=== PATIENT | male | born 1965 | race American Indian/Alaskan Native ===

== ENCOUNTER 2017-12-10 15:09 | Emergency (ER) | payer MEDICAID, OTHER, SELFPAY ==
--- NOTE | 2017-12-10 15:11 | DI.RAD.S_ITS ---
PROCEDURE: XR CHEST 1V INDICATIONS: ams TECHNIQUE: One view of the chest was acquired. COMPARISON: [facility], CR, CHEST 2VW, 12/24/2008, 0:35. [facility], CR, CHEST 1 VIEW, 10/04/2015, 19:04. FINDINGS: Surgical changes and devices: None. Lungs and pleura: No pleural effusions or pneumothorax. Lungs are clear. Mediastinum: Mediastinal contours appear normal. Heart size is normal. Bones and chest wall: No suspicious bony lesions. Overlying soft tissues appear unremarkable. IMPRESSION: No acute cardiopulmonary disease. Dictated by: Daisy Trujillo M.D. on 12/10/2017 at 15:49 Approved by: Daisy Trujillo M.D. on 12/10/2017 at 15:50
[2017-12-10 15:15] VITALS: BP 156/107; PULSE 126; RESP 16; TEMP 36.9; O2SAT 97; BMI 28.8
[2017-12-10 15:42] LABS: Add Manual Diff / Slide Review NO; Eosinophils Percent Auto 1.7 % (2-4); Hematocrit 47.7 % (41-53); Hemoglobin 15.7 g/dL (13.5-17.5); Lymphocytes Percent Auto 40.4 % (25-40); Mean Corpuscular HGB Conc 32.8 % (30-36); Mean Corpuscular Hemoglobin 31.5 PG (26-34); Mean Corpuscular Volume 95.8 fL (80-100); Monocytes Percent Auto 7.6 % (3-14); Neutrophils Absolute Auto 6700 /uL (3000-5900); Neutrophils Percent Auto 49.3 % (50-75); Platelet Count 441 X10^3/uL (150-400); Red Blood Cell Count 4.98 X10^6/uL (4.5-5.9); Red Cell Distribution Width 15.2 % (11.6-14.8); White Blood Cell Count 13.6 X10^3/uL (4.5-11.0)
[2017-12-10 15:43] LABS: Carbon Dioxide 11 mmol/L (22-32); Estimated Glomerular Filt Rate > 60.0 mL/min (>60); HEMOLYSIS 16 (0-50)
[2017-12-10 16:11] VITALS: BP 166/105; PULSE 95; RESP 19; O2SAT 96
[2017-12-10 16:36] LABS: BUN Creatinine Ratio 11.8 (6-22); Blood Urea Nitrogen 13 mg/dL (9-20); Calcium 9.6 mg/dL (8.4-10.2); Chloride 109 mmol/L (98-107); Ethanol (ETOH) < 10 mg/dL; Glucose 119 mg/dL (70-100); Potassium 3.3 mmol/L (3.4-5.1); Sodium 147 mmol/L (137-145)
--- NOTE | 2017-12-10 17:14 | ED_ITS ---
HPI - Alcohol General Chief Complaint: Toxicology Problem Stated Complaint: overdose Time Seen by Provider: 12/10/17 15:11 History of Present Illness HPI narrative: HPI 52-year-old male presents by EMS with improving mentation decreased shallow respirations, and was generally unresponsive. Patient given Narcan by law enforcement with rapid improvement in respirations in mentation. Patient notes that he was drinking and smoking alcohol, denies further drug use. Previously disclosed EMS that he was using methamphetamines. History notable for HTN, CVA. Field glucose 112. M/S/F/SocHx notable for: please see HPI; remainder reviewed with patient and in chart. ROS: Negative constitutional, eye, cardiovascular, pulmonary, GI, , MSK, skin , neurologic, psychiatric, endocrine unless noted in the HPI. Exam Gen: Pleasant, non-toxic appearing, resting comfortably. HEENT: NC, AT, PEERL, EOMI. Resp: Clear to auscultation bilaterally, normal work of breathing, no accessory muscle usage. Card: Regular rate and rhythm with no murmurs, rubs, or gallops, extremities warm and well perfused. GI: Non-tender to palpation throughout all quadrants, no focal tenderness at McBurney's point, negative Moon's sign, non-distended, no rebound or guarding. : No suprapubic tenderness to palpation. MSK: No visible deformities, strength and tone without visually appreciable deficit. Skin: Normal color with no visible lesions. Neuro: Gen AO x 3, no facial asymmetry, no gaze preference, no slurring of speech. Pupils equal and reactive, EOMI, no facial asymmetry, no nystagmus, phonation intact, SCM 5/5 bilaterally. Cerebellar: bilateral upper extremities without dysmetria. Psych: Mood and affect appropriate. Labs / Imaging: EKG: SR 112 bpm, no ST segment elevations or depressions, no LBBB. WBC 13.6, Hb 15.7, Na 147, K 3.3 UDS - pending EtOH <10 CXR: no acute cardiopulmonary process. MDM Previous chart, nursing note, labs, imaging, and vitals reviewed. A: 52-year-old male presents by EMS with improving mentation decreased shallow respirations, and was generally unresponsive; mentation returned to baseline after Narcan. Family notes patient has a history of heroin abuse, patient disclosed methamphetamine use. Patient observed to hours, no repeat sedation. Patient did not provide urine sample for drug screen. EKG notable for sinus tachycardia, resolved with rest, physical exam without evidence of murmurs, history without chest pain, no fevers, doubt endocarditis. Patient discharged with RX for Narcan, instructed to follow up with PCP. Patient was notified of their elevated blood pressure and recommended to follow up with their primary care physician. As the patient is without evidence of acute end organ dysfunction no further emergent evaluation is indicated as per the [address] [facility] clinical policy. Impression: heroin abuse, methamphetamine abuse (please reference below for remainder of encounter information) Related Data Previous Rx's Medication Instructions Recorded lisinopril 40 mg PO QDAY #30 tab 04/09/16 Allergies Allergy/AdvReac Type Severity Reaction Status Date / Time No Known Drug Allergies Allergy Unknown Unverified 08/18/17 12:29 Exam Initial Vital Signs Initial Vital Signs: Vital Signs Temperature 98.5 F 12/10/17 15:15 Pulse Rate 126 H 12/10/17 15:15 Respiratory Rate 16 12/10/17 15:15 Blood Pressure 156/107 H 12/10/17 15:15 Pulse Oximetry 97 12/10/17 15:15 Course Orders Ordered: ED Orders 12/10/17 14:50 Basic Metabolic Panel Stat Complete Blood Count AUTO DIFF Stat Ethanol (ETOH) Stat 12/10/17 15:11 XR chest 1V Stat Urine Drug Screen, Rapid Stat EKG-12 Lead Stat Vital Signs - 8 hr 12/10/17 15:15 12/10/17 16:11 Temperature 98.5 F Pulse Rate 126 H 95 H Respiratory Rate 16 19 Blood Pressure 156/107 H Blood Pressure [Left Arm] 166/105 H Pulse Oximetry 97 96 MDM - Alcohol Lab Data Result diagrams: 12/10/17 14:50 12/10/17 14:50 Labs: Lab Results 12/10/17 12/10/17 Range/Units 14:50 14:50 WBC 13.6 H (4.5-11.0) X10^3/uL RBC 4.98 (4.5-5.9) X10^6/uL Hgb 15.7 (13.5-17.5) g/dL Hct 47.7 (41-53) % MCV 95.8 (80-100) fL MCH 31.5 (26-34) PG MCHC 32.8 (30-36) % RDW 15.2 H (11.6-14.8) % Plt Count 441 H (150-400) X10^3/uL Neut % (Auto) 49.3 L (50-75) % Lymph % (Auto) 40.4 H (25-40) % [place] % (Auto) 7.6 (3-14) % Eos % (Auto) 1.7 L (2-4) % Baso % (Auto) 1.0 (0-2) % Neut # (Auto) 6700 H (7963-8783) /uL Sodium 147 H (137-145) mmol/L Potassium 3.3 L (3.4-5.1) mmol/L Chloride 109 H (98-107) mmol/L Carbon Dioxide 11 L (22-32) mmol/L BUN 13 (9-20) mg/dL Creatinine 1.10 (0.66-1.25) mg/dL Estimated GFR > 60.0 (>60) mL/min BUN/Creatinine Ratio 11.8 (6-22) Glucose 119 H (70-100) mg/dL Calcium 9.6 (8.4-10.2) mg/dL Ethyl Alcohol < 10 mg/dL Discharge Plan Departure Prescriptions: No Action lisinopril 40 MG tablet 40 mg PO QDAY Qty: 30 RF: 0
[2017-12-10 17:28] VITALS: BP 158/107; PULSE 89; RESP 18; O2SAT 99
== END 2017-12-10 17:29 | disposition home or self-care (01) ==
PROVIDERS: Emergency Provider Emergency Medicine; Family Provider Family Medicine; PCP Family Medicine
DX: F15.10 Other stimulant abuse, uncomplicated (principal); F11.10 Opioid abuse, uncomplicated
CPT/HCPCS: 71045; 80048; 80320; 85025; 93005; 93010; 99282; 99285

== ENCOUNTER 2018-02-18 05:41 | Emergency (ER) | payer MEDICAID, OTHER, SELFPAY ==
[2018-02-18 05:45] VITALS: BP 153/104; PULSE 114; RESP 18; TEMP 36.7; O2SAT 100; BMI 27.3
--- NOTE | 2018-02-18 05:45 | DI.RAD.S_ITS ---
PROCEDURE: XR CHEST 1V INDICATIONS: fell to floor vs syncope after using amphetamines and thc. TECHNIQUE: One view of the chest was acquired. COMPARISON: [facility], CR, XR CHEST 1V, 12/10/2017, 15:18. FINDINGS: Surgical changes and devices: None. Lungs and pleura: No pleural effusions or pneumothorax. No acute consolidation. There is scattered subsegmental atelectasis and/or scarring Mediastinum: Mediastinal contours appear normal. Heart size is normal. Bones and chest wall: No suspicious bony lesions. Overlying soft tissues appear unremarkable. IMPRESSION: No acute disease. Dictated by: Ferdinand Harley M.D. on 02/18/2018 at 9:15 Approved by: Ferdinand Harley M.D. on 02/18/2018 at 9:16
--- NOTE | 2018-02-18 05:47 | ED_ITS ---
HPI - Syncope General Chief Complaint: Syncope Stated Complaint: passed out Time Seen by Provider: 02/18/18 05:44 Source: patient and EMS Mode of arrival: ambulatory Limitations: no limitations History of Present Illness HPI narrative: This is a 52-year-old male comes to the emergency department with complaint of ingestion of marijuana and methamphetamines about 9 o'clock last night. This morning he was outside the house and came back into the house when family states that collapsed. There is concern that he was may be not breathing or did have a pulse but CPR was never initiated. EMS arrived the patient was breathing on his own. I he arrived here in the ER and was able stand and walk to the bathroom to give a urine sample. Patient states that something similar has happened before. He does not remember exactly what happened he does remember going into the house. He denies any headache, he denies any vision changes, he denies any new weakness or numbness. Denies any chest pain or shortness of breath. No nausea, no vomiting no loss of bowel or bladder control. Patient does have a history of elevated blood pressure and was on 3 blood pressure medications in the past but has not taken those for about a year. He denies any head injuries or head or neck back pain. Related Data Previous Rx's Medication Instructions Recorded lisinopril 40 mg PO QDAY #30 tab 04/09/16 naloxone [Narcan] 4 mg NASAL Q2M PRN #2 each 12/10/17 lisinopril 40 mg PO DAILY #14 tab 02/18/18 Allergies Allergy/AdvReac Type Severity Reaction Status Date / Time No Known Drug Allergies Allergy Unknown Verified 02/18/18 05:59 Review of Systems Review of Systems All systems reviewed & are unremarkable except as noted in HPI and below Constitutional Denies fever(s), Denies headache(s), Denies malaise and Denies weakness Eyes Denies change in vision ENT Ears, Nose, Mouth, and Throat: Denies headache(s) and Denies neck pain Cardiovascular Denies chest pain, Reports syncope (possible), Denies edema, Denies irregular heart rhythm, Denies lightheadedness, Denies palpitations, Denies dyspnea and Denies orthopnea Respiratory Denies chest congestion, Denies cough, Denies excessive phlegm production, Denies dyspnea and Denies wheezing Gastrointestinal Gastrointestinal: Denies abdominal pain, Denies change in bowel habits, Denies fecal incontinence, Denies diarrhea, Denies nausea and Denies vomiting Genitourinary Denies urinary frequency and Denies urinary incontinence Musculoskeletal Denies back pain, Denies neck pain and Denies numbness Neurologic Reports syncope (possible), Denies headache(s), Denies numbness and Denies weakness Endocrine Denies palpitations Allergic/Immunologic Denies wheezing PFSH Medical History Hypertension (Acute) Social History Smoking Status: Current every day smoker alcohol intake: current substance use type: marijuana and amphetamines Exam Initial Vital Signs Initial Vital Signs: Vital Signs Temperature 98.0 F 02/18/18 05:45 Pulse Rate 114 H 02/18/18 05:45 Respiratory Rate 18 02/18/18 05:45 Blood Pressure 153/104 H 02/18/18 05:45 Pulse Oximetry 100 02/18/18 05:45 GEN: well nourished, well appearing male, alert and oriented x 3, patient appears to be in no acute distress. HEENT: Atraumatic, pupils are equal round reactive to light, extraocular movements are intact, nares are clear, TMs are clear with no fluid, there is no conjunctival pallor. Throat is clear without any exudates, erythema, tonsillar enlargement or uvular deviation, no facial droop, no dysarthria. HEART: Tachycardic but regular rate and rhythm without murmur, clicks, rubs. No carotid bruits, pulses are equal in upper and lower extremities LUNGS:Lungs clear to auscultation, no wheezes, rales, crackles, chest moves symmetrically, no tachypnea, no accessory muscle use. ABD:bowel sounds normal, soft, non-tender, no guarding, rebound, rigidity, no masses noted, no hepatosplenomegaly :No CVA tenderness BACK: No cervical, thoracic or lumbar vertebral point tenderness. Patient has normal range of motion. Patient's gait is normal. Muscle strength is 5/5 in lower extremities, MSCL: Non-tender, no muscle atrophy, muscles strength 5/5 upper and lower extremities, full range of motion, normal gait NEURO:CN 2-12 intact, sensation normal Scores GCS Browns coma scale eye opening: Spontaneous Browns coma scale verbal response: Orientated Browns coma scale motor response: Obey commands Waqas coma scale total score: 15 Course Orders Ordered: Discontinued Medications Sodium Chloride (Normal Saline 0.9%) 1,000 mls @ 1,000 mls/hr IV BOLUS ONE Stop: 02/18/18 06:43 Last Admin: 02/18/18 06:15 Dose: 1,000 mls/hr Vital Signs - 8 hr 02/18/18 05:45 02/18/18 06:25 Temperature 98.0 F Pulse Rate 114 H 105 H Respiratory Rate 18 23 Blood Pressure 153/104 H Blood Pressure [Left Arm] 147/96 H Pulse Oximetry 100 MDM - Syncope Lab Data Result diagrams: 02/18/18 05:50 02/18/18 05:50 Lab Results 02/18/18 02/18/18 02/18/18 Range/Units 05:50 05:50 06:00 WBC 8.4 (4.5-11.0) X10^3/uL RBC 5.13 (4.5-5.9) X10^6/uL Hgb 15.6 (13.5-17.5) g/dL Hct 47.1 (41-53) % MCV 91.7 (80-100) fL MCH 30.4 (26-34) PG MCHC 33.2 (30-36) % RDW 14.7 (11.6-14.8) % Plt Count 319 (150-400) X10^3/uL Neut % (Auto) 67.2 (50-75) % Lymph % (Auto) 21.7 L (25-40) % [place] % (Auto) 8.4 (3-14) % Eos % (Auto) 1.7 L (2-4) % Baso % (Auto) 1.0 (0-2) % Neut # (Auto) 5700 (3646-9337) /uL Sodium 142 (137-145) mmol/L Potassium 4.0 (3.4-5.1) mmol/L Chloride 105 (98-107) mmol/L Carbon Dioxide 22 (22-32) mmol/L BUN 21 H (9-20) mg/dL Creatinine 0.90 (0.66-1.25) mg/dL Estimated GFR > 60.0 (>60) mL/min BUN/Creatinine Ratio 23.3 H (6-22) Glucose 124 H (70-100) mg/dL Calcium 8.9 (8.4-10.2) mg/dL Total Bilirubin 0.8 (0.2-1.3) mg/dL AST 38 (17-59) IU/L ALT 34 (21-72) IU/L Alkaline Phosphatase 110 (38-126) U/L Total Creatine Kinase 88 (55-170) U/L CK-MB (CK-2) TNP CK-MB (CK-2) Rel Index TNP Troponin I < 0.012 (0.01-0.034) ng/mL Total Protein 7.8 (6.3-8.2) g/dL Albumin 4.4 (3.5-5.0) g/dL Globulin 3.4 (1.7-4.1) g/dL Albumin/Globulin Ratio 1.3 (1.0-2.8) Urine Opiates Screen Negative (Negative) Ur Oxycodone Screen Positive H (Negative) Urine Methadone Screen Negative (Negative) Ur Barbiturates Screen Negative (Negative) U Tricyclic Antidepress Positive H (Negative) Ur Phencyclidine Scrn Negative (Negative) Ur Amphetamines Screen Positive H (Negative) U Methamphetamines Scrn Positive H (Negative) Ur MDMA Scrn (Ecstasy) Negative (Negative) U Benzodiazepines Scrn Negative (Negative) Urine Cocaine Screen Negative (Negative) U Marijuana (THC) Screen Positive H (Negative) Imaging Data Chest x-ray: Attestation: I personally reviewed and interpreted this imaging study as follows: My impression: no fx, no cardiomegaly, no acute process. Radiologist's impression: [address] [address] XRay Report Signed Patient: Morris Bhatt#: [id number] : 1965Acct:[id number] Age/Sex: 52 / MDate of Service: 12/10/17 Loc: ED Accession Number: [id number] Procedure: XR chest 1V Ordering Provider: Asher Mares M.D. PROCEDURE: XR CHEST 1V INDICATIONS: ams TECHNIQUE: One view of the chest was acquired. COMPARISON: [facility], , CHEST 2VW, 12/24/2008, 0:35. [facility], CHEST 1 VIEW, 10/04/2015, 19:04. FINDINGS: Surgical changes and devices: None. Lungs and pleura: No pleural effusions or pneumothorax. Lungs are clear. Mediastinum: Mediastinal contours appear normal. Heart size is normal. Bones and chest wall: No suspicious bony lesions. Overlying soft tissues appear unremarkable. IMPRESSION: No acute cardiopulmonary disease. Dictated by: Daisy Trujillo M.D. on 12/10/2017 at 15:49 Approved by: Daisy Trujillo M.D. on 12/10/2017 at 15:50 ECG Data Attestation: I personally reviewed and interpreted this ECG as follows: Prior ECG tracings: available for review Interpretation: Sinus tachycardia with a rate of 110, P are 174, QRS of 89 and QTC of 395. Patient has a similar EKG from December 10, 2017 which also shows sinus tach tachycardia with similar ST segments. Discharge Plan Departure Patient Disposition: Home Clinical Impression: Methamphetamine use, Syncope Discharge Date/Time: 02/18/18 07:13 Interventions: ED Discharge Assessment Last Done: 02/18/18 07:10 Instructions: DI for Syncope in Adults (Fainting) Activity Restrictions/Additional Instructions: Follow up in 24-48 hours for recheck. Call the clinic for an appointment. Avoid methamphetamines. Return to the ER for worsening symptoms, recurrent symptoms, passing out, chest pain, shortness of breath, persistent vomiting, black or bloody stools, sudden severe headaches, new weakness, numbness or loss of sensation. Restart your blood pressure medication. You will need to follow up with your physician in order to get restarted on all your medications. Prescriptions: New lisinopril 40 mg tablet 40 mg PO DAILY Qty: 14 RF: 0 No Action lisinopril 40 MG tablet 40 mg PO QDAY Qty: 30 RF: 0 naloxone [Narcan] 4 mg/actuation spray,non-aerosol 4 mg NASAL Q2M PRN (Reason: opiate reversal) Qty: 2 RF: 0
[2018-02-18 06:03] LABS: Add Manual Diff / Slide Review NO; Eosinophils Percent Auto 1.7 % (2-4); Hematocrit 47.1 % (41-53); Hemoglobin 15.6 g/dL (13.5-17.5); Lymphocytes Percent Auto 21.7 % (25-40); Mean Corpuscular HGB Conc 33.2 % (30-36); Mean Corpuscular Hemoglobin 30.4 PG (26-34); Mean Corpuscular Volume 91.7 fL (80-100); Monocytes Percent Auto 8.4 % (3-14); Neutrophils Absolute Auto 5700 /uL (3000-5900); Neutrophils Percent Auto 67.2 % (50-75); Platelet Count 319 X10^3/uL (150-400); Red Blood Cell Count 5.13 X10^6/uL (4.5-5.9); Red Cell Distribution Width 14.7 % (11.6-14.8); White Blood Cell Count 8.4 X10^3/uL (4.5-11.0)
[2018-02-18 06:14] LABS: Alanine Aminotransferase 34 IU/L (21-72); Albumin 4.4 g/dL (3.5-5.0); Albumin Globulin Ratio 1.3 (1.0-2.8); Alkaline Phosphatase 110 U/L (38-126); Aspartate Aminotransferase 38 IU/L (17-59); BUN Creatinine Ratio 23.3 (6-22); Bilirubin Total 0.8 mg/dL (0.2-1.3); Blood Urea Nitrogen 21 mg/dL (9-20); Calcium 8.9 mg/dL (8.4-10.2); Carbon Dioxide 22 mmol/L (22-32); Chloride 105 mmol/L (98-107); Creatine Kinase 88 U/L (55-170); Estimated Glomerular Filt Rate > 60.0 mL/min (>60); Globulin 3.4 g/dL (1.7-4.1); Glucose 124 mg/dL (70-100); HEMOLYSIS < 15 (0-50); Sodium 142 mmol/L (137-145); Total Protein 7.8 g/dL (6.3-8.2)
[2018-02-18] MEDS: SODIUM CHLORIDE 0.9% 1,000 ML 1000 ML IV (06:15)
[2018-02-18 06:25] VITALS: BP 147/96; PULSE 105; RESP 23
[2018-02-18 06:30] LABS: Troponin I < 0.012 ng/mL (0.01-0.034)
[2018-02-18 06:34] LABS: Urine Cocaine Negative (Negative); Urine Morphine/Opi cutoff 2000 Negative (Negative); Urine Tetrahydrocannabinol Positive (Negative)
[2018-02-18 06:35] LABS: Urine Amphetamines Positive (Negative); Urine Barbiturates Negative (Negative); Urine Benzodiazepines Negative (Negative); Urine MDMA Negative (Negative); Urine Methadone Negative (Negative); Urine Methamphetamines Positive (Negative); Urine Oxycodone Positive (Negative); Urine Phencyclidine Negative (Negative); Urine Tricyclic Antidepressant Positive (Negative)
[2018-02-18 07:10] VITALS: BP 144/95; PULSE 103; RESP 28; O2SAT 100
== END 2018-02-18 07:13 | disposition home or self-care (01) ==
PROVIDERS: Emergency Provider Emergency Medicine; Family Provider Family Medicine; PCP Family Medicine
DX: F15.10 Other stimulant abuse, uncomplicated (principal); R55 Syncope and collapse
CPT/HCPCS: 36591; 71045; 80053; 80305; 82550; 84484; 85025; 93005; 93010; 96360; 99283; 99285

== ENCOUNTER 2023-05-28 18:35 | Emergency (ER) | payer MEDICAID, OTHER, SELFPAY ==
[2023-05-28] VITALS (7 sets, daily range): BP systolic 108–179; BP diastolic 56–93; PULSE 97–104; RESP 18; TEMP 37; O2SAT 98–100; BMI 23.6
--- NOTE | 2023-05-28 19:26 | DI.RAD.S_ITS ---
PROCEDURE: XR KNEE LT 3V INDICATIONS: pain after fall TECHNIQUE: 3 views of the knee were acquired. COMPARISON: None. FINDINGS: Bones: Displaced fracture through the mid patella, with 2.7 cm subluxation. Soft tissues: Large joint effusion. No suspicious soft tissue calcifications. IMPRESSION: Displaced, subluxed mid patellar fracture. Dictated by: Kenneth Gregory M.D. on 05/28/2023 at 19:58 Approved by: Kenneth Gregory M.D. on 05/28/2023 at 19:59
--- NOTE | 2023-05-28 20:03 | ED_ITS ---
HPI - Extremity Injury (Lower) General Chief Complaint: Extremity Injury, Lower Stated Complaint: lt kne inj/poss infection/fracture Time Seen by Provider: 05/28/23 19:01 Source: patient Mode of arrival: Wheelchair History of Present Illness HPI Narrative: Patient is a 57-year-old male. He is approximately 4 weeks after falling and landing on his left knee. He states that he has had difficulty walking on it since then has had swelling of the left knee but does state that overall the pain in the swelling have actually improved. He does have a walker that he uses. He denies any fevers. He states initially he could not put any pressure on his knee but that his since improved. He can bend his knee but it is limited because of the discomfort. No overlying skin changes. He is here in the emergency department today because his friends told him that he should be more improved than what he is so there was concerned of either an infection or a fracture. Related Data Previous Rx's Medication Instructions Recorded lisinopril 40 mg tablet 40 mg PO QDAY #30 tabs 04/09/16 naloxone 4 mg/actuation nasal 4 mg intranasal Q2M PRN opiate 12/10/17 spray (Narcan) reversal #2 ea lisinopril 40 mg tablet 40 mg PO DAILY #14 tabs 02/18/18 Allergies Allergy/AdvReac Type Severity Reaction Status Date / Time No Known Drug Allergies Allergy Unknown Verified 02/18/18 05:59 Review of Systems Constitutional Constitutional: Reports system reviewed and no additional complaints, except as documented Musculoskeletal Musculoskeletal: Reports system reviewed and no additional complaints, except as documented Integumentary/Breasts Skin/Breast: Reports system reviewed and no additional complaints, except as documented Neurologic Neurologic: Reports system reviewed and no additional complaints, except as documented Patient History Medical History Hypertension Social History Smoking Status: Current every day smoker alcohol intake: current substance use type: marijuana and amphetamines Smoking Status: Current every day smoker tobacco type: cigarettes alcohol intake frequency: 0-2 drinks per day Substance Use Type: former substance user, marijuana and unknown Exam Initial Vital Signs Initial Vital Signs: Vital Signs Temperature 98.6 F 05/28/23 18:38 Pulse Rate 101 H 05/28/23 18:38 Respiratory Rate 18 01/19/24 18:38 Blood Pressure 167/89 H 05/28/23 18:38 Pulse Oximetry 100 05/28/23 18:38 Oxygen Delivery Method Room Air 05/28/23 18:38 Skin General: no rashes or lesions noted Neuro Sensory Exam: no sensory deficits noted Extrem Other: Patient does have swelling to the left knee. He is tender over the patella. His patellar tendon/quadriceps tendon appear to be intact. No tenderness of the hamstring. He can flex and extend but it is somewhat limited in flexion because of discomfort. Procedures Orthopedic Splinting/Casting Injury #1: Side: left Lower Extremity Injury Location: knee Lower Extremity Immobilizer: knee immobilizer Post splinting neuro exam: no change Post splinting vascular exam: no change Placed by: Nursing Course Orders Ordered: ED Orders 05/28/23 19:26 XR knee LT 3V Stat Vital Signs Vital signs: Vital Signs - 8 hr 05/28/23 18:38 05/28/23 19:02 05/28/23 19:33 Temperature 98.6 F Pulse Rate 101 H 102 H Pulse Rate [Left] 104 H Respiratory Rate 18 18 Blood Pressure 167/89 H 108/56 L Pulse Oximetry 100 98 Oxygen Delivery Method Room Air Room Air 05/28/23 19:50 05/28/23 20:00 05/28/23 20:15 Temperature Pulse Rate 100 H 101 H 97 H Pulse Rate [Left] Respiratory Rate Blood Pressure Pulse Oximetry 98 98 99 Oxygen Delivery Method 05/28/23 20:17 Temperature Pulse Rate Pulse Rate [Left] Respiratory Rate Blood Pressure 179/93 H Pulse Oximetry Oxygen Delivery Method MDM - Extremity Injury (Lower) Imaging Data Extremity x-ray #1: Radiologist's Impression: PROCEDURE: XR KNEE LT 3V INDICATIONS: pain after fall TECHNIQUE: 3 views of the knee were acquired. COMPARISON: None. FINDINGS: Bones: Displaced fracture through the mid patella, with 2.7 cm subluxation. Soft tissues: Large joint effusion. No suspicious soft tissue calcifications. IMPRESSION: Displaced, subluxed mid patellar fracture. [facility] Narrative Medical decision making narrative: There was no redness over the left knee. It is not warm to the touch. His x- ray does show a patella fracture. He does have an effusion of the left knee. I discuss this with him. We will place him in a knee immobilizer. He has a walker that he can use as needed. I suspect that his symptoms will improve over the next couple weeks as the patella heels. He was given return precautions. He expressed understanding and agreement. Discharge Plan Departure Patient Disposition: Home Clinical Impression: Patellar fracture Instructions: DI for Patella Fracture Activity Restrictions/Additional Instructions: You do have a broken kneecap on the left. The knee immobilizer should be worn when you were up walking around but you can take it off to shower and to sleep. You can continue to use the walker has needed. Contact your primary doctor for a follow-up. Return to the emergency department for new symptoms. Prescriptions: No Action lisinopril 40 MG tablet 40 mg PO QDAY Qty: 30 0RF naloxone [Narcan] 4 mg/actuation spray,non-aerosol 4 mg NASAL Q2M PRN (Reason: opiate reversal) Qty: 2 0RF Rx Instructions: administer 1 dose into single nostril; alternate nostrils w each dose; administer for symptoms of overdose until medical assistance arrives lisinopril 40 mg tablet 40 mg PO DAILY Qty: 14 0RF Stand Alone Forms: Patient Portal/API
== END 2023-05-28 20:22 | disposition home or self-care (01) ==
PROVIDERS: Emergency Provider Emergency Medicine
DX: S82.002A Unspecified fracture of left patella, initial encounter for closed fracture (principal); W18.30XA Fall on same level, unspecified, initial encounter; Z79.899 Other long term (current) drug therapy
CPT/HCPCS: 73562; 99283

== ENCOUNTER 2023-08-25 08:00 | Emergency (ER) | payer MEDICAID, OTHER, SELFPAY ==
[2023-08-25] VITALS (13 sets, daily range): BP systolic 160–174; BP diastolic 90–111; PULSE 79–107; RESP 16–52; TEMP 36.8; O2SAT 94–100; BMI 22.8
--- NOTE | 2023-08-25 08:07 | ED.GENADULT ---
HPI - General Adult General Chief complaint: Toxicology Problem Stated complaint: OD Time Seen by Provider: 08/25/23 08:01 Source: patient and EMS Mode of arrival: EMS Limitations: no limitations History of Present Illness HPI narrative: Patient is a 58-year-old male who arrives by EMS for initially a chief complaint of an overdose. EMS was called to the patient's house by family members. Apparently the patient was unresponsive this morning. Per report he received 12 mg of Narcan by individuals in the house prior to EMS arrival. This improved his mental status. He received no further Narcan by EMS. He was somnolent but arousable in maintaining airway upon arrival. Here in the ER he has no specific complaints. He did state that he took ?something? this morning but would not say specifically what it was. EMS reports that they were told that he did some fentanyl last night and smoked some marijuana this morning. Patient denies chest pain, abdominal pain, shortness of breath, headache Related Data Previous Rx's Medication Instructions Recorded lisinopril 40 mg tablet 40 mg PO QDAY #30 tabs 04/09/16 naloxone 4 mg/actuation nasal 4 mg intranasal Q2M PRN opiate 12/10/17 spray (Narcan) reversal #2 ea lisinopril 40 mg tablet 40 mg PO DAILY #14 tabs 02/18/18 Allergies Allergy/AdvReac Type Severity Reaction Status Date / Time No Known Drug Allergies Allergy Unknown Verified 02/18/18 05:59 Review of Systems Review of Systems ROS Unobtainable: All systems reviewed & are unremarkable except as noted in HPI and below Patient History Medical History Hypertension Social History Smoking Status: Current every day smoker alcohol intake: current substance use type: marijuana and amphetamines Smoking Status: Current every day smoker tobacco type: cigarettes alcohol intake frequency: 0-2 drinks per day Substance Use Type: former substance user, marijuana and unknown Exam Initial Vital Signs Initial Vital Signs: Vital Signs Pulse Rate 107 H 08/25/23 08:05 Respiratory Rate 27 H 08/25/23 08:05 Const General: disheveled HENMT Head: normal to inspection and normocephalic Teeth and gingiva: poor dentition Resp Effort & Inspection: normal respiratory effort Auscultation: clear to auscultation bilaterally Cardio Rate: regular rate Rhythm: regular rhythm GI Inspection: normal to inspection and non-distended Skin General: no rashes or lesions noted Neuro General: patient alert, patient awake, patient oriented x3 and moves all extremities Cognition: normal cognition Speech: speech normal Extrem Other: No gross deformities Scores GCS [place] coma scale eye opening: Spontaneous [place] coma scale verbal response: Orientated [place] coma scale motor response: Obey commands [place] coma scale total score: 15 Course Orders Ordered: ED Orders 08/25/23 08:42 Urine Microscopic Stat Vital Signs Vital signs: Vital Signs - 8 hr 08/25/23 08:05 08/25/23 08:08 08/25/23 08:08 Temperature Pulse Rate 107 H 103 H Respiratory Rate 27 H 43 H Blood Pressure 174/108 H Pulse Oximetry Oxygen Delivery Method 08/25/23 08:10 08/25/23 08:10 08/25/23 08:16 Temperature 98.3 F Pulse Rate 98 H 105 H Respiratory Rate 37 H 16 Blood Pressure 166/94 H 166/94 H Pulse Oximetry 98 100 Oxygen Delivery Method Room Air 08/25/23 08:21 08/25/23 08:21 08/25/23 08:30 Temperature Pulse Rate 105 H 97 H Respiratory Rate 35 H 44 H Blood Pressure 172/111 H Pulse Oximetry 100 98 Oxygen Delivery Method 08/25/23 08:33 08/25/23 08:33 08/25/23 08:40 Temperature Pulse Rate 81 Respiratory Rate 40 H Blood Pressure 171/101 H 169/108 H Pulse Oximetry 99 Oxygen Delivery Method 08/25/23 08:40 08/25/23 08:50 08/25/23 08:50 Temperature Pulse Rate 79 79 Respiratory Rate 52 H Blood Pressure 160/90 H Pulse Oximetry 97 98 Oxygen Delivery Method 08/25/23 09:00 08/25/23 09:00 Temperature Pulse Rate 83 Respiratory Rate 21 Blood Pressure 174/100 H Pulse Oximetry 95 Oxygen Delivery Method Medical Decision Making Lab Data Labs: Lab Results 08/25/23 Range/Units 08:42 Urine RBC 0-1/hpf (0-5/HPF) Urine WBC None seen (0-5/HPF) Ur Squamous Epith Cells None seen (0-5/HPF) Urine Bacteria None seen (None) Ur Culture Indicated? Cult not indicated Vol Urine Centrifuged 10ml (spun) Point of Care Testing Glucose POC 148 Urine Dip Bedside Urine Glucose Negative Bedside Urine Bilirubin - Negative Bedside Urine Ketone - Negative Urine Specific [place] 1.020 Bedside Urine Occult Blood - Negative Bedside Urine pH 6.0 Bedside Urine Protein +/- 15 Bedside Urine Urobilinogen - Negative Bedside Urine Nitrite - Negative Bedside Urine Leukocytes - Negative Esterase Point of care testing: Point of Care Testing Glucose POC 148 Urine Dip Bedside Urine Glucose Negative Bedside Urine Bilirubin - Negative Bedside Urine Ketone - Negative Urine Specific [place] 1.020 Bedside Urine Occult Blood - Negative Bedside Urine pH 6.0 Bedside Urine Protein +/- 15 Bedside Urine Urobilinogen - Negative Bedside Urine Nitrite - Negative Bedside Urine Leukocytes - Negative Esterase MDM Narrative Medical decision making narrative: Patient does admit to taking ?something? this morning and receiving Narcan prior to arrival. He was observed here in the emergency department for several hours. Was sleeping but maintaining his own airway. No respiratory distress. Was alert and oriented. Was able to stand and walk to the bathroom. Low suspicion for intracranial hemorrhage. Given his response to Narcan I suspect this was opioid related. Discharge patient home with return precautions Discharge Plan Departure Patient Disposition: Home Clinical Impression: Overdose Instructions: DI for Opioid Use Disorder Activity Restrictions/Additional Instructions: No driving for the next 24 hours or in the future if you per take in intoxicating substances. Patient states that he has Narcan at home and does not need a refill. He understands that Narcan was used on him this morning. Will discharge patient home with return precautions Prescriptions: No Action lisinopril 40 MG tablet 40 mg PO QDAY Qty: 30 0RF naloxone [Narcan] 4 mg/actuation spray,non-aerosol 4 mg NASAL Q2M PRN (Reason: opiate reversal) Qty: 2 0RF Rx Instructions: administer 1 dose into single nostril; alternate nostrils w each dose; administer for symptoms of overdose until medical assistance arrives lisinopril 40 mg tablet 40 mg PO DAILY Qty: 14 0RF Stand Alone Forms: Patient Portal/API
[2023-08-25 08:56] LABS: Urine Volume 10mL (spun)
[2023-08-25 09:03] LABS: Bacteria Urine None Seen; Culture Indicated Urine Cult Not Indicated; RBC Urine 0-1/HPF (0-5/HPF); Squamous Epithelial Cell Urine None Seen (0-5/HPF); WBC Urine None Seen (0-5/HPF)
== END 2023-08-25 10:26 | disposition home or self-care (01) ==
PROVIDERS: Emergency Provider Emergency Medicine
DX: T50.901A Poisoning by unspecified drugs, medicaments and biological substances, accidental (unintentional), initial encounter (principal)
CPT/HCPCS: 36415; 81003; 81015; 99284

== ENCOUNTER 2024-11-26 15:54 | Emergency (ER) | payer OTHER, MEDICAID, SELFPAY ==
[2024-11-26 16:06] VITALS: BP 131/97; PULSE 123; RESP 22; TEMP 36.5; O2SAT 99; BMI 24.3
--- NOTE | 2024-11-26 16:11 | DI.RAD.S_ITS ---
PROCEDURE: XR HAND LT MIN 3V INDICATIONS: left hand laceration TECHNIQUE: 3 views of the hand(s) acquired. COMPARISON: None. FINDINGS: Bones: No fractures or dislocations. Carpal bones are normally aligned. No suspicious bony lesions. Soft tissues: No suspicious soft tissue calcifications. There is soft tissue thickening about the 3rd middle phalanx without radiopaque foreign body. IMPRESSION: Soft tissue injury without radiopaque foreign body or acute bony abnormality. Dictated by: Adamaris Mcdonnell M.D. on 11/26/2024 at 15:39 Approved by: Adamaris Mcdonnell M.D. on 11/26/2024 at 15:39
[2024-11-26] MEDS: LIDOCAINE 2% INJ SDV 5ML 10 ML INJ (16:15)
[2024-11-26 16:20] LABS: Add Manual Diff / Slide Review NO; Hematocrit 40.5 % (41-53); Hemoglobin 13.2 g/dL (13.5-17.5); Lymphocytes Absolute Auto 1600 /uL (1100-4500); Mean Corpuscular HGB Conc 32.5 % (30-36); Mean Corpuscular Hemoglobin 28.1 PG (26-34); Mean Corpuscular Volume 86.4 fL (80-100); Platelet Count 448 X10^3/uL (150-400)
[2024-11-26 16:26] LABS: Alanine Aminotransferase 19 IU/L (<50); Albumin 4.3 g/dL (3.5-5.0); Albumin Globulin Ratio 1.1 (1.0-2.8); Alkaline Phosphatase 99 U/L (38-126); Blood Urea Nitrogen 22 mg/dL (9-20); Calcium 8.5 mg/dL (8.4-10.2); Carbon Dioxide 19 mmol/L (22-32); Chloride 115 mmol/L (98-107); Estimated Glomerular Filt Rate 35 mL/min (>60); Globulin 3.9 g/dL (1.7-4.1); Glucose 141 mg/dL (70-99); HEMOLYSIS < 15 (0-50); Potassium 3.6 mmol/L (3.4-5.1); Sodium 145 mmol/L (137-145); Total Protein 8.2 g/dL (6.3-8.2)
[2024-11-26] MEDS: LIDOCAINE 2% INJ MDV 20ML 5 ML INJ (17:15)
[2024-11-26] MEDS: TET,DIPH,PERTUSS(ACELL),VAC/PF 0.5 ML SYRINGE IM (17:15)
[2024-11-26] MEDS: BACITRACIN OINT 0.9 GM PCKT 1 APPLIC TOP (17:16)
[2024-11-26] MEDS: SODIUM CHLORIDE 0.9% 1,000 ML 1000 ML IV (17:16)
--- NOTE | 2024-11-26 17:41 | ED_ITS ---
HPI - Extremity Injury (Upper) General Chief Complaint: Extremity Injury, Upper Stated Complaint: Lt hand laceration Time Seen by Provider: 11/26/24 16:07 Source: patient Mode of arrival: Ambulatory History of Present Illness HPI narrative: 59-year-old male with a left middle finger laceration from a knife while cutting some rope today around 1400. Patient has had excessive bleeding since that time. Patient denies any other fever chills or other symptoms. He has full range of the motion of the finger and is neurovascularly intact. Related Data Previous Rx's ?Medication ?Instructions ?Recorded lisinopril 40 mg tablet 40 mg PO QDAY #30 tabs 04/09 naloxone 4 mg/actuation nasal 4 mg intranasal Q2M PRN opiate 12/10/17 spray (Narcan) reversal #2 ea lisinopril 40 mg tablet 40 mg PO DAILY #14 tabs 02/07 06/27 cephalexin 500 mg tablet 500 mg PO BID #14 tabs 11/26 hydrocodone 5 mg-acetaminophen 325 1 tab PO Q4-6H PRN pain #7 tabs 11/26/24 mg tablet Allergies Allergy/AdvReac Type Severity Reaction Status Date / Time No Known Drug Allergies Allergy Unknown Verified 11/26/24 16:06 Review of Systems Review of Systems ROS Unobtainable: All systems reviewed & are unremarkable except as noted in HPI and below Patient History Medical History Hypertension Social History Smoking Status: Current every day smoker alcohol intake: current substance use type: marijuana and amphetamines Smoking Status: Current every day smoker tobacco type: cigarettes alcohol intake frequency: 0-2 drinks per day Exam Narrative Exam Narrative: General: Healthy appearing, in no acute distress. Able to give a complete and coherent history. Well-nourished well-developed HEENT: Moist mucous membranes, normal sclera with reactive pupils, Neck: No JVD, supple Respiratory: Lungs are clear to auscultation, no wheezing no rales no rhonchi. Full and symmetrical air movement Cardiac: Regular rate and rhythm no murmurs no bruits Abdomen: Soft, nontender, no rebound or guarding, no flank pain Skin: right middle finger has 5-6 cm laceration that is actively bleeding , nv intact, good rom Neurologic: Grossly neurologically intact with no obvious asymmetries or abnormalities Extremities: No trauma, well perfused Psych: Cooperative, appropriate insight and affect Initial Vital Signs Initial Vital Signs: Vital Signs Temperature 97.7 F 11/26/24 16:06 Pulse Rate 123 H 11/26/24 16:06 Respiratory Rate 22 11/26/24 16:06 Blood Pressure 131/97 H 11/26/24 16:06 Pulse Oximetry 99 11/26/24 16:06 Oxygen Delivery Method Room Air 11/26/24 16:06 Procedures Laceration Repair Laceration 1: Time of procedure: 17:30 Site: hand (right middle finger dorsum ) Side (If applicable): right Size (cm): 6 Description: linear Depth: simple, single layer Local Anesthetic: lidocaine 2% Amount of anesthesia used (mL): 7 Skin layer closed with: nylon Skin layer suture size: 5-0 Number of sutures: 7 Technique: simple, interrupted Course Course Course Narrative: Patient's bleeding did slow down some after some direct pressure. It was decided to do a digital nerve block of his right middle finger and suture. Orders Ordered: ED Orders 11/26/24 16:05 CBC Auto Diff [Complete Blood Count AUTO DIFF] Stat CMP [Comprehensive Metabolic Panel] Stat 11/26/24 16:11 XR hand LT min 3V Stat 11/26/24 16:43 Blood Culture Stat Discontinued Medications Bacitracin (Bacitracin Oint 0.9 Gm Pckt) 1 applic TOP NOW ONE Stop: 11/26/24 16:28 Last Admin: 11/26/24 17:16 Dose: 1 applic Documented By: TRIP Diphtheria/Tetanus/Acell Pertussis (Tet,Diph,Pertuss(Acell),Vac/Pf 0.5 Ml Syringe) 0.5 ml IM .ONCE ONE Stop: 11/26/24 16:28 Last Admin: 11/26/24 17:15 Dose: 0.5 ml Documented By: TRIP Sodium Chloride (Normal Saline 0.9%) 1,000 mls @ 1,000 mls/hr IV BOLUS ONE Stop: 11/26/24 17:28 Last Infusion: 11/26/24 18:06 Dose: Infused Documented By: Admin: 11/26/24 17:16 Dose: 1,000 mls/hr Documented By: LM Lidocaine HCl (Lidocaine 2% Inj Sdv 5ml) 10 ml INJ INTRA-OP ONE Stop: 11/26/24 16:16 Last Admin: 11/26/24 16:15 Dose: 10 ml Documented By: MLM Lidocaine HCl (Lidocaine 2% Inj Mdv 20ml) 5 ml INJ INTRA-OP ONE Stop: 11/26/24 17:08 Last Admin: 11/26/24 17:15 Dose: 5 ml Documented By: RB Lidocaine HCl (Lidocaine 2% Inj Mdv 20ml) 10 ml INJ INTRA-OP ONE Stop: 11/26/24 17:10 Reevaluation(s) Reevaluation #1: Upon re-evaluation, patient's digital finger is still bleeding but has slowed down some. After the digital nerve block, it was successful and the patient was washed out by the nurse with normal saline. Vital Signs Vital signs: Vital Signs - 8 hr 11/26/24 16:06 Temperature 97.7 F Pulse Rate 123 H Respiratory Rate 22 Blood Pressure 131/97 H Pulse Oximetry 99 Oxygen Delivery Method Room Air MDM - Extremity Injury (Upper) Differential Diagnosis Differential diagnosis: Likely fracture of hand and other (laceration of finger ) Lab Data 11/26/24 16:05 11/26/24 16:05 Labs: Lab Results 11/26/24 Range/Units 16:05 WBC 7.1 (4.5-11.0) X10^3/uL RBC 4.68 (4.5-5.9) X10^6/uL Hgb 13.2 L (13.5-17.5) g/dL Hct 40.5 L (41-53) % MCV 86.4 (80-100) fL MCH 28.1 (26-34) PG MCHC 32.5 (30-36) % RDW 16.5 H (11.6-14.8) % Plt Count 448 H (150-400) X10^3/uL Neut % (Auto) 71.8 (50-75) % Lymph % (Auto) 22.8 L (25-40) % [place] % (Auto) 4.0 (3-14) % Eos % (Auto) 0.3 L (2-4) % Baso % (Auto) 1.1 (0-2) % Neut # (Auto) 5100 (4304-3278) /uL Lymph # (Auto) 1600 (0099-1956) /uL [place] # (Auto) 300 (0-900) /uL Eos # (Auto) 0 (0-450) /uL Baso # (Auto) 100 (0-100) /uL Sodium 145 (137-145) mmol/L Potassium 3.6 (3.4-5.1) mmol/L Chloride 115 H (98-107) mmol/L Carbon Dioxide 19 L (22-32) mmol/L BUN 22 H (9-20) mg/dL Creatinine 2.14 H (0.66-1.25) mg/dL Estimated GFR 35 L (>60) mL/min BUN/Creatinine Ratio 10.3 (6-22) Glucose 141 H (70-99) mg/dL Calcium 8.5 (8.4-10.2) mg/dL Total Bilirubin 0.5 (0.2-1.3) mg/dL AST 25 (17-59) IU/L ALT 19 (<50) IU/L Alkaline Phosphatase 99 (38-126) U/L Total Protein 8.2 (6.3-8.2) g/dL Albumin 4.3 (3.5-5.0) g/dL Globulin 3.9 (1.7-4.1) g/dL Albumin/Globulin Ratio 1.1 (1.0-2.8) MDM Narrative Medical decision making narrative: Patient has a knife laceration of his right middle finger. No concern for any tendon or nerve damage at this time. His x-ray does show any acute bony fracture. Patient had a successful digital nerve block with 7 mL of 2% lidocaine. Seven nylon simple interrupted 5 0 sutures were used as per above. Patient tolerated the procedure well. No complications. Discharge Plan Departure Patient Disposition: Home Clinical Impression: Laceration Instructions: DI for Laceration Repair -- Complex Suture, DI for Acute Kidney Injury Activity Restrictions/Additional Instructions: Keep area dry and clean for 24 hours. Take antibiotics and pain meds as prescribed. Follow up sooner for any signs of infection of redness warmth, swelling, pain. Follow up with PCP in 7-10 days for suture removal. Follow-up with PCP for a nephrology referral. Your kidneys have been damage some. Stay very well hydrated and make sure to follow up with a physician as shown. Prescriptions: New hydrocodone-acetaminophen 5-325 mg tablet 1 tab PO Q4-6H PRN (Reason: pain) Qty: 7 0RF cephalexin 500 mg tablet 500 mg PO BID Qty: 14 0RF No Action lisinopril 40 MG tablet 40 mg PO QDAY Qty: 30 0RF naloxone [Narcan] 4 mg/actuation spray,non-aerosol 4 mg NASAL Q2M PRN (Reason: opiate reversal) Qty: 2 0RF Rx Instructions: administer 1 dose into single nostril; alternate nostrils w each dose; administer for symptoms of overdose until medical assistance arrives lisinopril 40 mg tablet 40 mg PO DAILY Qty: 14 0RF Stand Alone Forms: Patient Portal/API
== END 2024-11-26 18:22 | disposition home or self-care (01) ==
PROVIDERS: Emergency Provider Family Medicine
DX: S61.213A Laceration without foreign body of left middle finger without damage to nail, initial encounter (principal); W26.0XXA Contact with knife, initial encounter; Z23 Encounter for immunization
CPT/HCPCS: 12002; 36415; 73130; 80053; 85025; 87040; 90471; 96360; 99284; 90715